=== PATIENT | male | born 1995 | race African-American/Black ===

== ENCOUNTER 2017-01-20 09:45 | Emergency (ER) | payer SELFPAY ==
[~2017-01-20] VITALS: Ht 182.9 cm; Wt 76.0 kg
[2017-01-20] MEDS ORDERED: SODIUM CHLORIDE 0.9% 1,000 ML IV ONE (10:27)
[2017-01-20 10:51] LABS: BASOPHILS % 0.2 % (0.0-2.0); DIFFERENTIAL COMMENT 0; EOSINOPHILS % 0.4 % (0.0-5.0); HEMATOCRIT. 38.6 % (42.0-52.0); HEMOGLOBIN. 12.3 g/dL (14.0-18.0); LYMPHOCYTES % 8.3 % (20.0-50.0); MEAN CORPUSCULAR HEMOGLOBIN 23.6 pg (28.0-32.0); MEAN CORPUSCULAR HGB CONC 31.9 g/dL (31.0-37.0); MEAN CORPUSCULAR VOLUME 74.1 fL (80.0-94.0); MEAN PLATELET VOLUME 7.6 fl (7.4-10.4); MONOCYTES % 2.3 % (2.0-8.0); NEUTROPHILS % 88.8 % (40.0-76.0); PLATELET 190 x1000/uL (130-400); RED BLOOD CELL COUNT 5.21 mill/uL (4.7-6.1); RED CELL DISTRIBUTION WIDTH 14.7 % (11.6-14.6); WHITE BLOOD COUNT 9.6 x1000/uL (4.5-11.0)
[2017-01-20 10:59] LABS: CHLORIDE 103 mEq/L (98-107); INDEX HEMOLYSI 1 (1-3); INDEX ICTERIC 1 (1-4); INDEX LIPEMIC 1 (1-3)
[2017-01-20 11:04] LABS: ACETAMINOPHEN < 2 ug/mL (10-30); ANION GAP 15; CALCIUM 8.9 mg/dL (8.5-10.1); CARBON DIOXIDE 24 mEq/L (21-32); ETHANOL BLOOD < 10 mg/dL; UREA NITROGEN BLOOD 13 mg/dL (7-21); eGFR > 60 mL/min (>60)
[2017-01-20 11:05] LABS: *AMPHETAMINES SCREEN URINE NEGATIVE (NEGATIVE); *BARBITURATES SCREEN URINE NEGATIVE (NEGATIVE); *BENZODIAZEPINES SCREEN URINE NEGATIVE (NEGATIVE); *COCAINE SCREEN URINE NEGATIVE (NEGATIVE); CANNABINOID URINE SCREEN PRESUMTIVE POSITIVE (NEGATIVE); ECSTASY MDMA SCREEN URINE NEGATIVE (NEGATIVE); METHADONE URINE SCREEN NEGATIVE (NEGATIVE); OPIATES URINE SCREEN NEGATIVE (NEGATIVE); PHENCYCLIDINE URINE SCREEN NEGATIVE (NEGATIVE)
[2017-01-20 12:35] VITALS: BP 112/76
== END 2017-01-20 12:37 | disposition home or self-care (01) ==
LOC: ER 10:10
DX: F12.188 Cannabis abuse with other cannabis-induced disorder (principal); G92 Toxic encephalopathy; J45.909 Unspecified asthma, uncomplicated; F17.210 Nicotine dependence, cigarettes, uncomplicated
CPT/HCPCS: 36415; 80048; 80305; 80329; 85025; 96360; 96361; 99285; G0482; J7030; Z7610; 80307

== ENCOUNTER 2021-09-09 20:06 | Emergency (ER) | payer MEDICAID ==
[~2021-09-09] VITALS: Ht 172.7 cm; Wt 77.0 kg
[2021-09-09 20:14] VITALS: BP 139/80
== END 2021-09-09 22:00 | disposition left against medical advice (07) ==
LOC: ER 20:06
DX: G40.909 Epilepsy, unspecified, not intractable, without status epilepticus (principal)
CPT/HCPCS: 82962; 99283

== ENCOUNTER 2023-05-07 10:43 | Emergency (ER) | payer MEDICAID ==
[~2023-05-07] VITALS: Ht 177.8 cm; Wt 62.0 kg
[2023-05-07] MEDS ORDERED: LEVETIRACETAM 500MG PREMIX 100 ML IV ONE (11:00)
[2023-05-07 11:17] LABS: BASOPHILS % 0.8 % (0.0-2.0); EOSINOPHILS % 1.1 % (0.0-5.0); HEMATOCRIT. 42.8 % (42.0-52.0); HEMOGLOBIN. 13.6 g/dL (14.0-18.0); LYMPHOCYTES % 17.6 % (20.0-50.0); MEAN CORPUSCULAR HEMOGLOBIN 26.1 pg (28.0-32.0); MEAN CORPUSCULAR VOLUME 82.5 fL (80.0-94.0); MEAN PLATELET VOLUME 7.1 fl (7.4-10.4); MONOCYTES % 3.8 % (2.0-8.0); NEUTROPHILS % 76.7 % (40.0-76.0); PLATELET 359 x1000/uL (130-400); RED BLOOD CELL COUNT 5.19 mill/uL (4.7-6.1); RED CELL DISTRIBUTION WIDTH 19.1 % (11.6-14.6)
[2023-05-07 11:35] LABS: CHLORIDE 106 mEq/L (98-107)
[2023-05-07 11:43] LABS: ETHANOL BLOOD < 10 mg/dL (-10)
[2023-05-07] MEDS ORDERED: LORAZEPAM 2MG/ML CPJ IV ONE (11:45)
[2023-05-07] MEDS ORDERED: KEPP500 MT (13:37)
[2023-05-07 14:54] VITALS: BP 111/76
== END 2023-05-07 14:55 | disposition home or self-care (01) ==
LOC: ER 10:43
DX: G40.509 Epileptic seizures related to external causes, not intractable, without status epilepticus (principal)
CPT/HCPCS: 36415; 80053; 80320; 85025; 96365; 96375; 99284; J1953; J2060; Z7610; G0480

== ENCOUNTER 2025-04-26 23:20 | Emergency (ER) | payer MEDICAID ==
[~2025-04-26] VITALS: Ht 172.7 cm; Wt 59.0 kg
[~2025-04-26 23:20] MED LIST: KEPP500 MT
[2025-04-26 23:32] VITALS: O2SAT 95
[2025-04-27] MEDS: LORAZEPAM 1MG TABLET PO NR (00:29)
[2025-04-27 00:37] LABS: CLARITY URINE CLEAR (CLEAR); COLOR URINE YELLOW (YELLOW); GLUCOSE URINE NEGATIVE (NEGATIVE); KETONES URINE NEGATIVE (NEGATIVE); LEUKOCYTE ESTERASE URINE NEGATIVE (NEGATIVE); NITRITE URINE NEGATIVE (NEGATIVE); OCCULT BLOOD URINE NEGATIVE (NEGATIVE); PH URINE 7.5 (4.5-8.0); PROTEIN URINE NEGATIVE (NEGATIVE); UROBILINOGEN URINE 0.2 E.U./dL (0.2-1.0)
[2025-04-27 00:55] LABS: BASOPHILS % 0.7 % (0.0-2.0); DIFFERENTIAL COMMENT 0; EOSINOPHILS % 1.1 % (0.0-5.0); HEMATOCRIT. 34.9 % (42.0-52.0); HEMOGLOBIN. 11.3 g/dL (14.0-18.0); LYMPHOCYTES % 44.4 % (20.0-50.0); MEAN CORPUSCULAR HEMOGLOBIN 25.1 pg (28.0-32.0); MEAN CORPUSCULAR HGB CONC 32.4 g/dL (31.0-37.0); MEAN CORPUSCULAR VOLUME 77.5 fL (80.0-94.0); MEAN PLATELET VOLUME 7.4 fl (7.4-10.4); MONOCYTES % 6.3 % (2.0-8.0); NEUTROPHILS % 47.5 % (40.0-76.0); PLATELET 236 x1000/uL (130-400); RED CELL DISTRIBUTION WIDTH 14.8 % (11.6-14.6); WHITE BLOOD COUNT 5.9 x1000/uL (4.5-11.0)
[2025-04-27 01:01] LABS: CHLORIDE 103 mEq/L (98-107); POTASSIUM 3.8 mEq/L (3.5-5.1); SODIUM 137 mEq/L (136-145)
[2025-04-27 01:02] LABS: CALCIUM 9.6 mg/dL (8.7-10.4); CARBON DIOXIDE 29 mEq/L (21-32)
[2025-04-27 01:07] LABS: CREATININE 0.9 mg/dL (0.6-1.3); GLUCOSE 69 mg/dL (70-105); UREA NITROGEN BLOOD 14 mg/dL (9-23)
[2025-04-27 01:07] LABS: *AMPHETAMINES SCREEN URINE NEGATIVE (NEGATIVE); *BARBITURATES SCREEN URINE NEGATIVE (NEGATIVE); *BENZODIAZEPINES SCREEN URINE NEGATIVE (NEGATIVE); *COCAINE SCREEN URINE NEGATIVE (NEGATIVE); CANNABINOID URINE SCREEN PRESUMPTIVE POSITIVE (NEGATIVE); ECSTASY MDMA SCREEN URINE NEGATIVE (NEGATIVE); METHADONE URINE SCREEN NEGATIVE (NEGATIVE); OPIATES URINE SCREEN NEGATIVE (NEGATIVE); PHENCYCLIDINE URINE SCREEN NEGATIVE (NEGATIVE)
[2025-04-27 01:08] LABS: ETHANOL BLOOD < 10 mg/dL (<10)
[2025-04-27 01:09] LABS: ACETAMINOPHEN < 2 ug/mL (10-30); ALANINE AMINOTRANSFERASE 14 IU/L (10-49); ALBUMIN 5.2 g/dL (3.2-4.8); ASPARTATE AMINOTRANSFERASE 19 IU/L (<34); BILIRUBIN DIRECT 0.1 mg/dL (<=3.0); BILIRUBIN TOTAL 0.4 mg/dL (0.1-1.0)
[2025-04-27 01:10] LABS: PROTEIN TOTAL 8.2 g/dL (6.0-8.3)
[2025-04-27 19:16] VITALS: BP 121/98; PULSE 82; RESP 18; TEMP 37.1; O2SAT 100
[2025-04-27] MEDS ORDERED: RISPERIDONE 0.5MG TABLET PO SCH (21:00)
[2025-04-27] MEDS ORDERED: DIVALPROEX SODIUM 250MG DR TABLET PO SCH (21:00)
== END 2025-04-27 19:35 | disposition short-term general hospital (02) ==
LOC: ER 23:20
DX: R45.851 Suicidal ideations (principal); R73.9 Hyperglycemia, unspecified; G40.909 Epilepsy, unspecified, not intractable, without status epilepticus; F17.200 Nicotine dependence, unspecified, uncomplicated; D64.9 Anemia, unspecified; F41.9 Anxiety disorder, unspecified; F20.9 Schizophrenia, unspecified; Z79.899 Other long term (current) drug therapy; Z20.822 Contact with and (suspected) exposure to COVID-19
CPT/HCPCS: 36415; 80048; 80076; 80305; 80307; 80320; 80329; 81003; 85025; 87426; 99285; G0480